=== PATIENT | male | born 2000 | race Caucasian/White ===

== ENCOUNTER 2025-04-23 23:20 | Emergency (ER) | payer OTHER ==
[~2025-04-23] VITALS: Ht 182.9 cm; Wt 90.0 kg
[2025-04-23 23:24] VITALS: O2SAT 99
[2025-04-24] MEDS ORDERED: IBUP-2030 MT (00:49)
[2025-04-24] MEDS: KETOROLAC 15MG/ML VIAL IM ONE (00:50)
[2025-04-24 00:53] VITALS: BP 132/67; PULSE 122; RESP 16; TEMP 36.6; O2SAT 99
== END 2025-04-24 01:29 | disposition home or self-care (01) ==
LOC: ER 23:20
DX: S42.461A Displaced fracture of medial condyle of right humerus, initial encounter for closed fracture (principal); W19.XXXA Unspecified fall, initial encounter; Y93.89 Activity, other specified; Y92.89 Other specified places as the place of occurrence of the external cause; Y99.8 Other external cause status
CPT/HCPCS: 99283; 73080; 96372; J1885; A6449; A4565

== ENCOUNTER 2025-04-24 03:07 | Emergency (ER) | payer OTHER ==
[~2025-04-24] VITALS: Ht 182.9 cm; Wt 97.6 kg
[~2025-04-24 03:07] MED LIST: IBUP-2030 MT
[2025-04-24 03:12] VITALS: O2SAT 100
[2025-04-24 05:12] LABS: BASOPHILS % 0.5 % (0.0-2.0); EOSINOPHILS % 0.4 % (0.0-5.0); HEMATOCRIT. 39.7 % (42.0-52.0); HEMOGLOBIN. 13.2 g/dL (14.0-18.0); LYMPHOCYTES % 22.0 % (20.0-50.0); MEAN PLATELET VOLUME 8.9 fl (7.4-10.4); MONOCYTES % 8.7 % (2.0-8.0); NEUTROPHILS % 68.4 % (40.0-76.0); PLATELET 218 x1000/uL (130-400); RED BLOOD CELL COUNT 4.59 mill/uL (4.7-6.1); RED CELL DISTRIBUTION WIDTH 13.5 % (11.6-14.6)
[2025-04-24 05:28] LABS: CREATININE 0.9 mg/dL (0.6-1.3); UREA NITROGEN BLOOD 7 mg/dL (9-23)
[2025-04-24 05:29] LABS: ETHANOL BLOOD < 10 mg/dL (<10); PROTEIN TOTAL 7.0 g/dL (6.0-8.3)
[2025-04-24 05:30] LABS: ASPARTATE AMINOTRANSFERASE 19 IU/L (<34); BILIRUBIN DIRECT 0.2 mg/dL (<=3.0); BILIRUBIN TOTAL 0.4 mg/dL (0.1-1.0)
[2025-04-24 09:12] VITALS: BP 128/78; PULSE 78; RESP 16; TEMP 36.4; O2SAT 100
== END 2025-04-24 09:15 | disposition home or self-care (01) ==
LOC: ER 03:07
DX: R45.851 Suicidal ideations (principal); Z59.01 Sheltered homelessness; Z79.899 Other long term (current) drug therapy
CPT/HCPCS: 36415; 80048; 80076; 80307; 80320; 80329; 85025; 93005; 99285; G0480